=== PATIENT | male | born 1975 | race Caucasian/White ===

== ENCOUNTER 2020-03-04 04:25 | Inpatient (IN) | payer MEDICAID ==
[~2020-03-04] VITALS: Ht 170.2 cm; Wt 66.7 kg
[2020-03-04 04:30] VITALS: BP 128/104
--- NOTE | 2020-03-04 04:30 | NUR ---
PT B[facility]A [facility] [place]" FOR C/O LLQ AND RLQ ABD PAIN 04/24 X 2 DAYS. PT STATES, " PAIN IS SHARP." PT DENIES N/V/D. PT ABD IS SOFT, ROUND, AND TENDER TO TOUCH. BS PRESENT X 4 QUADRANTS. PT STATES LAST BM WAS 03/04/20 AND WAS "NORMAL." DENIES PAINFUL URINATION OR TESTICULAR PAIN. MEDHX: DENIES NKA
--- NOTE | 2020-03-04 04:30 | NUR ---
PT TAKEN TO BED 4 VIA GURNEY BY EMS. PT ABLE TO AMBULATE TO BED.
--- NOTE | 2020-03-04 04:35 | NUR ---
PT ADMITS TO DRUG USE X 3 HOURS AGO. " I DID SPEED, AND MARAROSITA." PT ON IT PROGRAM MANAGER.
[2020-03-04] MEDS ORDERED: KETOROLAC 30 MG/ML VIAL IVP ONE (04:40)
--- NOTE | 2020-03-04 04:50 | NUR ---
LABS DRAWN. IV PLACED IN R AC 20 G. IV SITE IS PATENT.
--- NOTE | 2020-03-04 04:54 | NUR ---
PT TAKEN TO CT VIA W/C.
--- NOTE | 2020-03-04 05:01 | NUR ---
PT RETURNED TO CT VIA W/C. PT AMBULATED TO BED 4 WITH STEADY GAIT.
--- NOTE | 2020-03-04 05:13 | NUR ---
UA COLLECTED VIA STRAIGHT CATH. UA SENT TO LAB.
--- NOTE | 2020-03-04 05:14 | NUR ---
ERMD AT BEDSIDE.
[2020-03-04] MEDS ORDERED: MORPHINE SULFATE 4 MG/ML SYR IVP ONE (05:15)
[2020-03-04] MEDS ORDERED: ONDANSETRON 4 MG/2 ML VIAL IVP ONE (05:15)
[2020-03-04] MEDS ORDERED: NACL 0.9% 1,000 ML IV ONE ×2 (05:20→06:00)
[2020-03-04 05:22] LABS: BASOPHILS # (AUTO) 0.1 K/uL (0.00-0.22); EOSINOPHILS # (AUTO) 0.5 K/uL (0-0.4); HEMOGLOBIN 16.7 g/dL (12.0-18.0); MEAN CORPUSCULAR HGB CONC 33 g/dL (33-37)
[2020-03-04 05:29] LABS: BASOPHILS % (AUTO) 0.6 % (0.0-2.0); EOSINOPHILS % (AUTO) 3.1 % (0.0-4.0); HEMATOCRIT 51.5 % (36-52); LYMPHOCYTES # (AUTO) 3.1 K/uL (2.0-11.5); LYMPHOCYTES % (AUTO) 18.9 % (20.5-51.1); MEAN CORPUSCULAR HEMOGLOBIN 29 pg (27-31); MEAN CORPUSCULAR VOLUME 88.1 fL (80-94); MONOCYTES # (AUTO) 0.7 K/uL (0.8-1.0); MONOCYTES % (AUTO) 4.2 % (1.7-9.3); NEUTROPHILS # (AUTO) 11.9 K/uL (1.8-7.7); NEUTROPHILS % (AUTO) 73.2 % (42.2-75.2); PLATELET COUNT (AUTO) 489 K/uL (140-450); RED BLOOD CELL COUNT(AUTO) 5.85 MIL/uL (4.20-6.10)
--- NOTE | 2020-03-04 05:29 | NUR ---
EKG PERFORMED AT BEDSIDE. SINUS TACHYCARDIA @ 102
--- NOTE | 2020-03-04 05:29 | NUR ---
EKG BEING PERFORMED AT BEDSIDE BY EMT
--- NOTE | 2020-03-04 05:29 | NUR ---
CALLED LAB TO OBTAIN BLOOD CULTURES, SAID THEY ARE ON THEIR WAY.
[2020-03-04 05:42] LABS: CARBON DIOXIDE 25.1 mmol/L (21-32); POTASSIUM 3.1 mmol/L (3.5-5.1)
[2020-03-04 05:43] LABS: ALBUMIN 3.3 g/dL (3.4-5.0); CREATININE 1.9 mg/dL (0.6-1.3); TOTAL BILIRUBIN 0.7 mg/dL (0.0-1.0)
[2020-03-04 05:46] LABS: WHITE BLOOD COUNT (AUTO) 16.3 K/uL (4.8-10.8)
[2020-03-04] MEDS ORDERED: PIPERACILLIN/TAZOBACTAM 3.375 GM in DEXTROSE 5% 50 ML IV ONE (05:50)
[2020-03-04 05:51] LABS: APPEARANCE,URINE CLOUDY (CLEAR); BILIRUBIN,URINE NEGATIVE (NEGATIVE); BLOOD, URINE 3+ (NEGATIVE); COLOR,URINE RED (YELLOW); LEUKOCYTE ESTERASE ,URINE NEGATIVE (NEGATIVE); NITRITE, URINE NEGATIVE (NEGATIVE); PH,URINE 5.5 (5.0-9.0); UGLUCOSE NEGATIVE (NEGATIVE)
[2020-03-04 05:52] LABS: RBC,URINE TOO NUMEROUS TO COUN /HPF (0-5); WBC,URINE 0-5 /HPF (0-5)
[2020-03-04] MEDS ORDERED: PIPERACILLIN/TAZOBACTAM 3.375 GM VIAL IV ONE (06:01)
[2020-03-04] MEDS ORDERED: KCL 20 MEQ/WATER INJ PREMIX 100 ML IV ONE (06:10)
[2020-03-04 06:22] LABS: BARBITURATE, URINE NEGATIVE ng/ml (NEG <=200); BENZODIAZEPINE, URINE NEGATIVE ng/mL (NEG <=200); CANNABINOID, URINE POSITIVE ng/mL (NEG <=50); COCAINE, URINE NEGATIVE ng/mL (NEG <=300); OPIATE, URINE NEGATIVE ng/mL (NEG <=2000); PHENCYCLIDINE SCREEN,URINE NEGATIVE ng/mL (NEG <=25)
[2020-03-04] MEDS ORDERED: ACETAMINOPHEN 325 MG TAB PO PRN (06:25)
[2020-03-04] MEDS ORDERED: DOCUSATE SODIUM 100 MG GELCAP PO PRN (06:25)
[2020-03-04] MEDS ORDERED: LORazepam 2 MG/ML VIAL IM/IVP PRN (06:25)
[2020-03-04] MEDS ORDERED: ZOLPIDEM 5 MG TAB PO PRN (06:25)
--- NOTE | 2020-03-04 06:30 | NUR ---
PTS PAIN HAS BEEN REDUCED FROM 04/24 TO 5. ALL PT NEEDS MET AT THIS TIME. EQUAL CHEST RISE AND FALL. FLIGHT NURSE AND PULSE OX IN PLACE. BED LOCKED AND IN LOWEST POSITION.
[2020-03-04 07:18] VITALS: BP 138/88
--- NOTE | 2020-03-04 07:18 | NUR ---
Patient will be admitted to care of [facility]. Admited to TELE. Will go to room 126 A. Belongings list completed. Report to MIRANDA ALY.
--- NOTE | 2020-03-04 07:18 | NUR ---
RECEIVED ENDORSEMENT FROM ER NURSE THIS 44 YEAR OLD MALE, ALERT, ORIENTEDX2, NILD DROWSY NOTED, BREATHING SPONTANEOUSLY AT ROOM AIR, [id number]%. BILATERAL CHEST CLEAR, ON AUSCULTATION, ABDOMEN WITH NORMAL BOWEL SOUNDS IN 4 QUADRANTS NOTED. WITH ONGOING POTASSIUM CHLORIDE 20MEQ/100ML 0.9NS AT 50ML/HR INFUSING WELL AT RT AC, G20 IV CANNULA NOTED. WITH IV CANNULA G20 AT LT AC NOTED ON SALINE LOCK.CAME IN ER DUE TO LOWER ABD PAIN AND DIAGNOSE A CASE OF PERFORATED BOWEL. SAFETY MEASURES IN PLACE. CONTINUE MONITOR.
[2020-03-04] MEDS: DEXT 5% / NACL 0.45% 1,000 ML IV SCH ×2 (07:30→16:25)
--- NOTE | 2020-03-04 08:05 | NUR ---
MRSA NARES SWAB TAKEN AND SENT TO LAB.
[2020-03-04 08:14] LABS: FREE T4 (FREE THYROXINE) 1.04 ng/dL (0.76-1.46); MAGNESIUM 1.9 mg/dL (1.8-2.4); PHOSPHORUS 3.1 mg/dL (2.5-4.9); THYROID STIMULATING HORMONE 2.34 uIU/mL (0.34-3.74)
--- NOTE | 2020-03-04 10:10 | NUR ---
FOR SURGERY,PROCEDURE EXPLAINED BY DR. MAXWELL, FULLY UNDERSTAND AND SIGNED THE CONSENT FOR SURGERY AND ANESTHESIA.
[2020-03-04] MEDS: MORPHINE SULFATE 2 MG/ML SYR IVP PRN ×2 (10:20→22:27)
--- NOTE | 2020-03-04 10:59 | NUR ---
LIVESTOCK NUTRITION TERRITORY MANAGER BY OR STAFF FOR SURGERY. PRE-OP CHECKLIST DONE.
[2020-03-04] MEDS ORDERED: FLUCONAZOLE 400 MG/NS PREMIX 200 ML IV SCH (11:00)
[2020-03-04] MEDS ORDERED: LIDOCAINE/EPI 1% 1:100000 20 ML VIAL INJ ONE ×2 (11:15→11:16)
[2020-03-04] MEDS ORDERED: BUPIVACAINE-MPF 0.25% 30 ML VIAL INJ ONE ×2 (11:16→11:17)
[2020-03-04] MEDS ORDERED: PROPOFOL 200 MG/20 ML VIAL IV ONE (11:32)
[2020-03-04] MEDS ORDERED: DEXAMETHASONE 4 MG/ML VIAL ONE (11:32)
[2020-03-04] MEDS ORDERED: fentaNYL citrate 0.05 MG/ML VIAL ONE (11:32)
[2020-03-04] MEDS ORDERED: ROCURONIUM 50 MG/5 ML VIAL IV ONE (11:32)
[2020-03-04] MEDS ORDERED: HYDROmorphone 1 MG/ML AMP ONE (11:32)
[2020-03-04] MEDS ORDERED: MIDAZOLAM 2 MG/2 ML VIAL ONE (11:32)
[2020-03-04] MEDS ORDERED: SEVOFLURANE 250 ML BTL INH ONE (11:32)
[2020-03-04] MEDS: PIPERACILLIN/TAZOBACTAM 3.375 GM in DEXTROSE 5% 50 ML IV SCH ×2 (12:00→18:41)
--- NOTE | 2020-03-04 12:21 | NUR ---
DISCHARGE PLANNING: THIS IS A 44 Y/O MALE PATIENT, WHO WAS BIBA DUE TO SEVER SHARP ABDOMINAL PAIN, NAUSEA. NO PERTINENT MEDICAL HISTORY. INITIAL DIAGNOSIS OF ABDOMINAL PAIN. INITIAL DIAGNOSIS OF WBC 16.3, H/H 16.7/51.5, NA/K 139/3.1, BUN/CREA 18/1.9, LACTIC ACID 2.5, LIPASE 621, ALB 3.3. UDS SHOWED AMPHETAMINES AND CANNABINOIDS. SURGERY CONSULTED FOR PERFORATED BOWEL. ON FLUCONAZOLE AND ZOSYN. DC PLAN PENDING ON PATIENT RESPONSE TO TREATMENT.
[2020-03-04] MEDS ORDERED: HYDROmorphone 1 MG/ML AMP IVP PRN (13:30)
--- NOTE | 2020-03-04 14:21 | NUR ---
BACK TO ROOM FROM OR, STATUS POST EXPLORE-LAPARATOMY, BIOPSY AND WITH BILATERAL KG DRAIN IN PLACE. AWAKE, ALERT, ORIENTEDX2 BUT STILL DROWSY NOTED. BREATHING SPONTANEOUSLY AT ROOM AIR, [id number]%, NOT IN LABORED NOTED. POST OP SITE DRY AND INTACT DRESSING, NO BLEEDING NOTED. IV FLUID D5 0.45% NS AT 100ML/HR RESUMED INFUSING WELL AT RT CEPHALIC VEIN NOTED, WITH IV CANNULA G20 AT RT AC ON SALINE SHEREE NOTED. , MAINTAINED UNTIL FURTHER ORDER, WITH NGT LAVAGE AT RIGHT NARES NOTED.SAFETY MEASURES IN PLACE. CONTINUE MONITOR
--- NOTE | 2020-03-04 16:05 | NUR ---
ALERT AND AWAKE BUT DROWSY, NO COMPLAINED OF PAIN, CONTINUE MONITOR.
--- NOTE | 2020-03-04 18:39 | NUR ---
DUE MEDICATION GIVEN, FULLY AWAKE AND ALERT, DENIES ANY PAIN, RT KG DRAINED AT 50ML, LT KG DRAINED AT 25ML NOTED. SAFETY MEASURES IN PLACE.
--- NOTE | 2020-03-04 19:14 | NUR ---
ENDORSED TO CLERICAL OFFICE FOR CONTINUITY OF CARE IN STABLE CONDITION, NOT IN DISTRESS
--- NOTE | 2020-03-04 19:17 | NUR ---
RECEIVED CARE FROM AM NURSE. PATIENT IS SLEEPING IN BED, IN STABLE CONDITION. NO COMPLAINT OF PAIN OR SIGNS OF DISTRESS. PATIENT IS S/P LAPAROTOMY WITH PROCREATED BOWEL REPAIR. DRESSINGS ARE DRY AND INTACT. PATIENT IS NO ROOM AIR. PATIENT IS ALERT BUT REFUSING TO OPEN EYES. SKIN AND WARM AND DRY. BILATERAL DRAINAGE TUBES NOTED. SAFETY PRECAUTIONS IN PLACE. CALL LIGHT WITHIN REACH. WILL CONTINUE TO MONITOR.
[2020-03-04 20:00] VITALS: BP 128/86
--- NOTE | 2020-03-04 21:23 | NUR ---
PER HANS MONTOYA MD NOTES, PT IS A FULL CODE. FULL CODE STATUS INPUTTED . PATIENT IS SLEEPING. NO SIGNS OF DISTRESS NOTED.
--- NOTE | 2020-03-04 22:20 | NUR ---
PATIENT REPORTED HAVING PAIN 8/10 IN ABD. MEDICATED ORDERED.
[2020-03-05] VITALS: BP 133/80
[2020-03-05] MEDS: PIPERACILLIN/TAZOBACTAM 3.375 GM in DEXTROSE 5% 50 ML IV SCH ×4 (00:26→17:36)
--- NOTE | 2020-03-05 00:56 | NUR ---
PATIENT LYING IN BED, COMPLAINING OF PAIN. PAIN MEDS ORDERED IS NOT DUE. WILL MEDICATE ORDERED WHEN PAIN MED IS DUE. PATIENT CONTINUES TO BE IN STABLE CONDITION. WILL CONTINUE TO MONITOR.
[2020-03-05] MEDS: DEXT 5% / NACL 0.45% 1,000 ML IV SCH ×3 (02:25→22:33)
--- NOTE | 2020-03-05 03:12 | NUR ---
PATIENT IS SLEEPING. VISIBLE CHEST RISE NOTED. WILL CONTINUE TO MONITOR.
[2020-03-05 04:00] VITALS: BP 128/86
[2020-03-05] MEDS: MORPHINE SULFATE 2 MG/ML SYR IVP PRN ×4 (04:09→20:31)
[2020-03-05 05:28] LABS: BASOPHILS % (AUTO) 0.2 % (0.0-2.0); EOSINOPHILS % (AUTO) 0.1 % (0.0-4.0); HEMATOCRIT 41.8 % (36-52); HEMOGLOBIN 13.6 g/dL (12.0-18.0); LYMPHOCYTES % (AUTO) 5.2 % (20.5-51.1); MEAN CORPUSCULAR HEMOGLOBIN 28 pg (27-31); MEAN CORPUSCULAR HGB CONC 33 g/dL (33-37); MEAN CORPUSCULAR VOLUME 86.8 fL (80-94); MONOCYTES % (AUTO) 5.5 % (1.7-9.3); NEUTROPHILS # (AUTO) 16.7 K/uL (1.8-7.7); PLATELET COUNT (AUTO) 327 K/uL (140-450); RED BLOOD CELL COUNT(AUTO) 4.82 MIL/uL (4.20-6.10); RED CELL DISTRIBUTION WIDTH 13.9 % (11.6-13.7); WHITE BLOOD COUNT (AUTO) 18.8 K/uL (4.8-10.8)
--- NOTE | 2020-03-05 07:30 | NUR ---
RECEIVED PATIENT FROM CEMENT STORAGE WORKER NURSE FOR CONTINUITY OF CARE. PATIENT IS SLEEPING IN BED, NO COMPLAINT OF PAIN OR SIGNS OF DISTRESS. PATIENT IS S/P LAPAROTOMY WITH PROCREATED BOWEL REPAIR. RESPIRATIONS EVEN AND UNLABORED, ON ROOM AIR. DRESSINGS ARE DRY AND INTACT. SKIN AND WARM AND DRY. IV SITE ON RIGHT FOREARM 20G WITH IVF RUNNING PER ORDERS. BILATERAL KG DRAINAGE TUBES NOTED. SAFETY PRECAUTIONS IN PLACE. CALL LIGHT WITHIN REACH. WILL CONTINUE TO MONITOR.
--- NOTE | 2020-03-05 07:38 | NUR ---
ENDORSED TO AM NURSE. PATIENT IS IN STABLE CONDITION.
[2020-03-05 08:00] VITALS: BP 159/91
--- NOTE | 2020-03-05 09:02 | NUR ---
PATIENT HAS BEEN SCREENED AND CATEGORIZED MODERATE NUTRITION RISK. PATIENT WILL BE SEEN WITHIN 3-5 DAYS OF ADMISSION. 03/06/20 03/08/[address]
[2020-03-05] MEDS: FLUCONAZOLE 200 MG/NS PREMIX 100 ML IV SCH (09:22)
--- NOTE | 2020-03-05 09:23 | NUR ---
MORNING MEDICATIONS GIVEN. MORPHINE IVP GIVEN FOR INCISIONAL PAIN OF 10/10. NO SIGNS OF DISTRESS NOTED. V/S TAKEN BP 159/91, HR 81. WILL CONTINUE TO MONITOR.
--- NOTE | 2020-03-05 10:35 | NUR ---
DR. SMITH BY THE BEDSIDE. EXPLAINED TO PATIENT OF CONTINUED NPO STATUS AND PATIENT VERBALIZES UNDERSTANDING. REPORTED DRAINAGE AMOUNT. NO FURTHER ORDERS GIVEN. WILL CONTINUE TO MONITOR.
[2020-03-05 12:00] VITALS: BP 151/83
--- NOTE | 2020-03-05 13:08 | NUR ---
MORPHINE IVP GIVEN FOR INCISIONAL PAIN OF 10/10. V/S TAKEN BP 151/83, HR 91. NO SIGNS OF DISTRESS NOTED. WILL CONTINUE TO MONITOR.
[2020-03-05 14:37] LABS: ANION GAP 16.4 (8-16); CARBON DIOXIDE 20.9 mmol/L (21-32); CREATININE 1.4 mg/dL (0.6-1.3); POTASSIUM 4.3 mmol/L (3.5-5.1)
[2020-03-05 16:00] VITALS: BP 133/77
--- NOTE | 2020-03-05 16:20 | NUR ---
V/S TAKEN. PATIENT IS FEBRILE WITH 100.3, COOLING MEASURES IN PLACE. WILL CONTINUE TO MONITOR.
--- NOTE | 2020-03-05 17:40 | NUR ---
REASSESSED V/S AND TEMP DECREASED TO 99.4F. AFTERNOON MEDICATIONS GIVEN. NO SIGNS OF DISTRESS NOTED. WILL CONTINUE TO MONITOR.
--- NOTE | 2020-03-05 19:30 | NUR ---
ENDORSED TO LANGUAGE THERAPIST NURSE FOR CONTINUITY CARE.
--- NOTE | 2020-03-05 19:30 | NUR ---
RECEIVED PT AAOX4 , NI D- O2 SAT WNL , NO S/SX OF ACUTE DISTRESS C/O PAIN - WILL MEDICATE . IV SITES INTACT AND PATENT . NPO RE EMPHASIZED . W/ 2 KG DRAIN AT SURGICAL SITE - DRESSING DRY AND INTACT - SOFT ABD. PLAN OF CARE DISCUSSED AND VERBALIZE UNDERSTANDING , SAFETY MEASURES IN PLACE . ON TELE MONITOR , BP WNL . WILL CONT. TO MONITOR .
[2020-03-05 20:00] VITALS: BP 127/62
[2020-03-05] MEDS: ONDANSETRON 4 MG/2 ML VIAL IVP PRN (20:31)
[2020-03-05] MEDS ORDERED: PANTOPRAZOLE 40 MG INJ VIAL IVP SCH (21:00)
[2020-03-05] MEDS: AMOXICILLIN 500 MG CAP PO SCH ×2 (21:00→22:00)
[2020-03-05] MEDS: CLARITHROMYCIN 500 MG TAB PO SCH (21:00)
[2020-03-06] VITALS: BP 125/65
--- NOTE | 2020-03-06 | NUR ---
MADE ROUNDS , NO S/SX OF ACUTE DISTRESS NOTED AT THIS TIME . WILL CONT. TO MONITOR.
[2020-03-06] MEDS: PIPERACILLIN/TAZOBACTAM 3.375 GM in DEXTROSE 5% 50 ML IV SCH ×4 (00:36→18:09)
[2020-03-06] MEDS: MORPHINE SULFATE 2 MG/ML SYR IVP PRN ×2 (01:18→05:56)
[2020-03-06 04:00] VITALS: BP 140/80
--- NOTE | 2020-03-06 04:00 | NUR ---
MADE ROUNDS , NO S/SX OF ACUTE DISTRESS NOTED AT THIS TIME . WILL CONT. TO MONITOR.
[2020-03-06] MEDS: ONDANSETRON 4 MG/2 ML VIAL IVP PRN (05:56)
--- NOTE | 2020-03-06 06:00 | NUR ---
C/O PAIN - JUST MEDICATED . WILL CONT. TO ASSESS .
[2020-03-06 06:43] LABS: BASOPHILS # (AUTO) 0.1 K/uL (0.00-0.22); BASOPHILS % (AUTO) 0.4 % (0.0-2.0); EOSINOPHILS # (AUTO) 1.1 K/uL (0-0.4); EOSINOPHILS % (AUTO) 7.1 % (0.0-4.0); HEMATOCRIT 39.9 % (36-52); HEMOGLOBIN 13.1 g/dL (12.0-18.0); LYMPHOCYTES # (AUTO) 1.1 K/uL (2.0-11.5); LYMPHOCYTES % (AUTO) 7.2 % (20.5-51.1); MEAN CORPUSCULAR HEMOGLOBIN 28 pg (27-31); MEAN CORPUSCULAR HGB CONC 33 g/dL (33-37); MEAN CORPUSCULAR VOLUME 86.5 fL (80-94); MONOCYTES # (AUTO) 0.8 K/uL (0.8-1.0); NEUTROPHILS % (AUTO) 80.3 % (42.2-75.2); PLATELET COUNT (AUTO) 303 K/uL (140-450); RED BLOOD CELL COUNT(AUTO) 4.61 MIL/uL (4.20-6.10); RED CELL DISTRIBUTION WIDTH 14.2 % (11.6-13.7); WHITE BLOOD COUNT (AUTO) 14.9 K/uL (4.8-10.8)
[2020-03-06 07:00] LABS: ANION GAP 10.9 (8-16); CARBON DIOXIDE 25.1 mmol/L (21-32); CREATININE 1.4 mg/dL (0.6-1.3)
[2020-03-06 07:03] LABS: MAGNESIUM 1.8 mg/dL (1.8-2.4); PHOSPHORUS 2.4 mg/dL (2.5-4.9)
--- NOTE | 2020-03-06 07:25 | NUR ---
RECEIVED REPORT FROM HANDYMAN NURSE FOR CONTINUITY OF CARE. PATIENT IS SLEEPING WITH LEFT LATERAL POSITION WITH VISIBLE CHEST RISE AND DOWN. BILATERAL KG DRAIN TUBE NOTED. SKIN WARM AND DRY. IV INFUSION D5 1/2 NS 100 CC/HR. NO ACUTE DISTRESS NOTED. SAFETY MEASURES IN PLACE. WILL CONTINUE TO MONITOR.
--- NOTE | 2020-03-06 07:25 | NUR ---
ENDORSED TO AM SHIFT - PT - STABLE .
[2020-03-06 08:00] VITALS: BP 148/80
[2020-03-06] MEDS: DEXT 5% / NACL 0.45% 1,000 ML IV SCH ×2 (08:25→18:42)
[2020-03-06] MEDS: FLUCONAZOLE 200 MG/NS PREMIX 100 ML IV SCH (09:30)
[2020-03-06] MEDS: PANTOPRAZOLE 40 MG INJ VIAL IVP SCH (09:31)
[2020-03-06] MEDS: CLARITHROMYCIN 500 MG TAB PO SCH ×2 (09:32→22:00)
[2020-03-06] MEDS: AMOXICILLIN 500 MG CAP PO SCH (09:32)
--- NOTE | 2020-03-06 09:32 | NUR ---
SCHEDULED MORNING MEDICATION GIVEN, EDUCATION PROVIDED. PATIENT TOLERATED WELL. CONTINUE WITH NPO EXCEPT MEDS. SAFETY MEASURES IN PLACE, CALL LIGHT WITHIN REACH. WILL CONTINUE TO MONITOR.
--- NOTE | 2020-03-06 11:10 | NUR ---
PATIENT RESTING IN BED, WITH NO ACUTE DISTRESS NOTED. AROUSABLE BY VOICE. IV INFUSING ORDERED. CALL LIGHT WITHIN REACH. WILL CONTINUE TO MONITOR.
[2020-03-06 12:00] VITALS: BP 140/89
--- NOTE | 2020-03-06 12:32 | NUR ---
IV ZOSYN CONNECTED AND INFUSE ORDERED, PATIENT TOLERATED WELL. WILL CONTINUE TO MONITOR.
[2020-03-06 16:00] VITALS: BP 147/86
[2020-03-06] MEDS: HYDROcodone/APAP 5/325 MG 1 TAB TAB PO PRN (18:09)
--- NOTE | 2020-03-06 18:09 | NUR ---
NORCO WAS GIVEN FOR ABDOMINAL PAIN 12/23. PATIENT HAS NO BM TODAY. EMPTY KG DRAIN BILATERAL SIDE. 20CC COLLECTED AT RIGHT SIDE. 40 CC COLLECTED AT LEFT SIDE. WILL CONTINUE TO MONITOR.
--- NOTE | 2020-03-06 19:30 | NUR ---
ENDORSED PATIENT TO CFD ENGINEER NURSE FOR CONTINUITY OF CARE.
--- NOTE | 2020-03-06 19:30 | NUR ---
RECEIVED PT AAOX4 , HE SAID BEARBALE PAIN AT THIS TIME , SURGICAL DRESSING DRY AND INTACT W/ 2 KG DRAINS - EMPTY , IV SITE INTACT AND PATENT . ON TELE MONITOR . SAFETY MEASURES IN PLACE - CALL LIGHT WITHIN REACH. PER AM NURSE SHE SAID SHE JUST GIVEN NARCO FOR PAIN ORALLY - I ASKED HER WHY SHE GAVE ORAL MEDS , SINCE I ENDORSED TO HER THE PT IS NPO - SHE SAID PT. IS NPO - SHE SAID PT IS NPO EXCEPT MEDS - WILL CLARIFY TO DR. GEORGE . Addendum: 03/07/20 at 0848 by Juliana Townsend RN I TEXTED TO DR. GEORGE -IF PT . IS TOTALLY NPO OR NPO EXCEPTS MEDS - DR. GEORGE TEXTED BACK NPO EXCEPT MEDS . - [place]
[2020-03-06 20:00] VITALS: BP 140/77
--- NOTE | 2020-03-06 20:00 | NUR ---
PT. IS TACHYPNEIC - RR 38 CPM - BUT THE THE O2 SAT IS 96 % - REFER TO RT FOR FURTHER ASSESSMENT . WILL CONT. TO MONITOR . Addendum: 03/06/20 at 2012 by Juliana Townsend RN THE ABOVE NURSE'S NOTE IS AN ERROR ENTRY - [id number]
--- NOTE | 2020-03-06 20:10 | NUR ---
SEEN /EXAMINE BY RT - SUGGESTING SEDATION . WILL CONT. TO MONITOR. Addendum: 03/06/20 at 2012 by Juliana Townsend RN TH ABOVE NURSE'S NOTE IS AN ERROR ENTRY - [id number]
--- NOTE | 2020-03-06 22:00 | NUR ---
MADE ROUNDS , NO S/SX OF ACUTE DISTRESS NOTED AT THIS TIME . WILL CONT. TO MONITOR.
[2020-03-07] VITALS: BP 142/68
--- NOTE | 2020-03-07 | NUR ---
MADE ROUNDS , NO S/SX OF ACUTE DISTRESS NOTED AT THIS TIME.
[2020-03-07] MEDS: PIPERACILLIN/TAZOBACTAM 3.375 GM in DEXTROSE 5% 50 ML IV SCH ×5 (00:37→23:34)
[2020-03-07 04:00] VITALS: BP 140/77
--- NOTE | 2020-03-07 04:00 | NUR ---
MADE ROUNDS , NO S/SX OF ACUTE DISTRESS NOT5ED AT THIS TIME .
--- NOTE | 2020-03-07 05:55 | NUR ---
PT CALL TO MY CHARGE NURSE - PER PT HE IS IN PAIN - ASKING MED. FOR PAIN - WILL MEDICATE .
[2020-03-07] MEDS: HYDROcodone/APAP 5/325 MG 1 TAB TAB PO PRN (05:56)
--- NOTE | 2020-03-07 06:35 | NUR ---
DR. Jorge SMITH ROUNDS , HE FOUND OUT [facility] AT THE PT'S BEDSIDE - DR. Jorge SMITH ASKING ME WHY THERE IS W[facility]ER AT BEDSIDE SINCE PT IS NPO ? I TOLD HIM THE PRIMARY DOCTOR ORDERED NPO EXCEPT MEDS .- WILL INFORM THE CHARGE NURSE ABOUT THIS MATTER .
--- NOTE | 2020-03-07 07:00 | NUR ---
PLACE PT ON TOTALLY NPO - WILL ENDORSE .
[2020-03-07] MEDS: DEXT 5% / NACL 0.45% 1,000 ML IV SCH ×4 (07:07→23:51)
--- NOTE | 2020-03-07 07:30 | NUR ---
ENDORSED TO AM SHIFT - PT - STABLE . BEARABLE PAIN HE SAID .
--- NOTE | 2020-03-07 07:30 | NUR ---
RECEIVED REPORT FROM KNUCKLE STRAP SEWER NURSE FOR CONTINUITY OF CARE. PATIENT RESTING IN BED, AROUSABLE BY VOICE, IV INFUSING 100CC/HR WITH D5 1/2 NS. NPO STATUS NOTED. KG DRAIN NOTED AT BILATERAL ABDOMINAL SITE. SKIN WARM AND DRY. COMPRESSION AT BILATERAL LOWER LEG. SAFETY MEASURES IN PLACE. WILL CONTINUE TO MONITOR.
[2020-03-07] MEDS: AMOXICILLIN 500 MG CAP PO SCH (08:56)
[2020-03-07] MEDS: FLUCONAZOLE 200 MG/NS PREMIX 100 ML IV SCH (08:56)
[2020-03-07] MEDS: CLARITHROMYCIN 500 MG TAB PO SCH (08:56)
[2020-03-07] MEDS: PANTOPRAZOLE 40 MG INJ VIAL IVP SCH (08:56)
--- NOTE | 2020-03-07 09:05 | NUR ---
SCHEDULED MORNING MEDICATION ADMINISTERED, EDUCATION PROVIDED, PATIENT TOLERATED WELL, ORAL MEDS HOLD DUE TO KEEP NPO STATUS. SAFETY MEASURES IN PLACE. NO ACUTE DISTRESS NOTED. WILL CONTINUE TO MONITOR.
--- NOTE | 2020-03-07 11:02 | NUR ---
CHECKED PATIENT, RESTING IN BED, NO ACUTE DISTRESS NOTED. WILL CONTINUE TO MONITOR.
[2020-03-07 12:00] VITALS: BP 157/92
--- NOTE | 2020-03-07 12:22 | NUR ---
IV ZOSYN ADMINISTERED. PATIENT RESTING IN BED, AROUSALE BY VOICE STIMULI. PATIENT DENIES ANY PAIN. SAFETY MEASURES IN PLACE, CALL LIGHT WITHIN REACH, WILL CONTINUE TO MONITOR.
[2020-03-07 14:58] LABS: BASOPHILS % (AUTO) 0.4 % (0.0-2.0); EOSINOPHILS % (AUTO) 9.1 % (0.0-4.0); HEMOGLOBIN 13.8 g/dL (12.0-18.0); LYMPHOCYTES # (AUTO) 1.1 K/uL (2.0-11.5); MEAN CORPUSCULAR HEMOGLOBIN 28 pg (27-31); MEAN CORPUSCULAR HGB CONC 33 g/dL (33-37); MEAN CORPUSCULAR VOLUME 86.1 fL (80-94); MONOCYTES # (AUTO) 0.6 K/uL (0.8-1.0); NEUTROPHILS # (AUTO) 8.3 K/uL (1.8-7.7); NEUTROPHILS % (AUTO) 75.5 % (42.2-75.2); PLATELET COUNT (AUTO) 330 K/uL (140-450); RED BLOOD CELL COUNT(AUTO) 4.88 MIL/uL (4.20-6.10); RED CELL DISTRIBUTION WIDTH 13.9 % (11.6-13.7)
[2020-03-07 15:19] LABS: ANION GAP 13.2 (8-16); CARBON DIOXIDE 25.5 mmol/L (21-32); CREATININE 1.2 mg/dL (0.6-1.3); POTASSIUM 3.7 mmol/L (3.5-5.1)
[2020-03-07 16:00] VITALS: BP 159/82
[2020-03-07] MEDS: MORPHINE SULFATE 2 MG/ML SYR IVP PRN ×2 (17:11→20:42)
--- NOTE | 2020-03-07 17:11 | NUR ---
MORPHINE ADMINISTERED VIA IVP FOR ABDOMINAL PAIN, 01/22. WILL REASSESS AND CONTINUE TO MONITOR.
--- NOTE | 2020-03-07 19:30 | NUR ---
ENDORSED PATIENT TO CIVIL ESTIMATOR NURSE FOR CONTINUITY OF CARE.
--- NOTE | 2020-03-07 19:31 | NUR ---
RECEIVED BEDSIDE ENDORSEMENT FROM AM SHIFT RN. RESPIRATION EVEN AND UNLABORED, NO SOB, ABLE TO MAKE NEEDS KNOWN, LEFT HAND 24 G, INTACT. ON NPO. WITH 2 KG JEANNIE, 1 ON THE LEFT AND 1 ON THE RIGHT SIDE OF THE ABDOMEN, SURGICAL INCISION AT THE MID ABDOMEN AREA, COVERED W/DRY DRESSING AND INTACT. FALL RISK PROTOCOL IN PLACE. SAFETY MEASURES IN PLACE. PLAN OF CARE DISCUSSED, CALL LIGHT WITHIN REACH.
--- NOTE | 2020-03-07 23:34 | NUR ---
zosyn ivpb given as ordered, no a/r noted.
[2020-03-08] VITALS: BP 145/83
--- NOTE | 2020-03-08 02:31 | NUR ---
PATIENT IS ASLEEP, RESPIRATION EVEN AND UNLABORED, CALL LIGHT WITHIN REACH.
[2020-03-08] MEDS: MORPHINE SULFATE 2 MG/ML SYR IVP PRN ×4 (03:30→20:59)
[2020-03-08] MEDS: PIPERACILLIN/TAZOBACTAM 3.375 GM in DEXTROSE 5% 50 ML IV SCH ×3 (05:15→18:27)
--- NOTE | 2020-03-08 05:16 | NUR ---
ZOSYN IV GIVEN ORDERED, NO A/R NOTED.
[2020-03-08] MEDS: DEXT 5% / NACL 0.45% 1,000 ML IV SCH ×2 (05:26→20:25)
--- NOTE | 2020-03-08 05:52 | NUR ---
LEFT SIDE KG DRAIN 80ML AND RIGHT SIDE KG DRAIN 60ML, WITH TOTAL OF 140ML.
[2020-03-08 07:00] LABS: BASOPHILS # (AUTO) 0.1 K/uL (0.00-0.22); BASOPHILS % (AUTO) 0.6 % (0.0-2.0); EOSINOPHILS # (AUTO) 1.1 K/uL (0-0.4); EOSINOPHILS % (AUTO) 11.2 % (0.0-4.0); HEMATOCRIT 38.6 % (36-52); HEMOGLOBIN 13.2 g/dL (12.0-18.0); LYMPHOCYTES # (AUTO) 1.3 K/uL (2.0-11.5); MEAN CORPUSCULAR HEMOGLOBIN 29 pg (27-31); MEAN CORPUSCULAR HGB CONC 34 g/dL (33-37); MEAN CORPUSCULAR VOLUME 84.7 fL (80-94); MONOCYTES # (AUTO) 0.9 K/uL (0.8-1.0); MONOCYTES % (AUTO) 8.5 % (1.7-9.3); NEUTROPHILS # (AUTO) 6.9 K/uL (1.8-7.7); NEUTROPHILS % (AUTO) 66.7 % (42.2-75.2); PLATELET COUNT (AUTO) 344 K/uL (140-450); RED BLOOD CELL COUNT(AUTO) 4.56 MIL/uL (4.20-6.10); RED CELL DISTRIBUTION WIDTH 13.5 % (11.6-13.7); WHITE BLOOD COUNT (AUTO) 10.3 K/uL (4.8-10.8)
[2020-03-08 07:07] LABS: ANION GAP 10.6 (8-16); CREATININE 1.2 mg/dL (0.6-1.3); POTASSIUM 3.6 mmol/L (3.5-5.1)
--- NOTE | 2020-03-08 07:20 | NUR ---
PATIENT IS IN STABLE CONDITION. ENDORSED TO AM SHIFT RN FOR CONTINUITY OF CARE.
--- NOTE | 2020-03-08 07:21 | NUR ---
RECEIVED ENDORSEMENT INSURANCE FOLLOW UP SPECIALIST NURSE, AWAKE,ALERT, BREATHING SPONTANEOUSLY AT ROOM AIR, NOT IN DISTRESS NOTED, WITH ONGOING IV FLUID D5 0.45% NS AT 100ML/H INFUSING WELL AT LEFT HAND, G 24, PATENT. WITH DRY AND INTACT SURGICAL DRESSING AT ABDOMEN WITH RIGHT AND LEFT EUFEMIA CAMILO DRAINAGE NOTED. SAFETY MEASURES IN PLACE.
[2020-03-08 08:00] VITALS: BP 145/79
--- NOTE | 2020-03-08 09:55 | NUR ---
VOIDED FREELY IN URINAL, STRAW YELLOW 650ML URINE NOTED. DUE MEDICATION GIVEN
[2020-03-08] MEDS: FLUCONAZOLE 200 MG/NS PREMIX 100 ML IV SCH (09:59)
[2020-03-08] MEDS: PANTOPRAZOLE 40 MG INJ VIAL IVP SCH (09:59)
--- NOTE | 2020-03-08 10:11 | NUR ---
DR. SMITH CALLED TO CANCEL THE THE UPPER GI SERIES AND MADE NEW ORDER FOR CT SCAN ABDOMEN/PELVIS WITH ORAL CONTRAST NOTED.
--- NOTE | 2020-03-08 11:47 | NUR ---
SENT TO CT SCAN DEPARTMENT IN STABLE CONDITION PER BED FOR CT SCAN ABDOMEN AND PELVIS WITH ORAL CONTRAST, NO NEED FOR CONSENT PER THE HIDE STRETCHER HAND.
--- NOTE | 2020-03-08 13:11 | NUR ---
COMPLAINED OF ABDOMINAL SURGICAL SITE PAIN, MORPHINE 2MG IVP ORDERED PRN GIVEN, KEEP COMFORTABLE TO BED
--- NOTE | 2020-03-08 14:50 | NUR ---
DRESSING CHANGED AT SURGICAL SITE ORDERED. MEDIAN ABDOMEN WITH INCISION, SURGICAL AUBREY AND NO DISCHARGES NOTED. CLEANSE WITH 0.95 NS ASEPTICALLY AND COVERED BY ADHESIVE WOUND DRESSING.
--- NOTE | 2020-03-08 15:10 | NUR ---
03/08/20 RD INITIAL ASSESSMENT COMPLETED PLEASE REFER TO NUTRITION ASSESSMENT UNDER CARE ACTIVITY FOR ESTIMATED NUTRITIONAL NEEDS. 1. CONTINUE NPO 2. ADVANCE TO CLEAR LIQUIDS WHEN MEDICALLY STABLE 3. CONSIDER PARENTERAL NUTRITION IF PT WILL CONTINUE TO BE NPO FOR A FURTHER EXTENDED TIME 4. RD TO FOLLOW-UP 2-3 DAYS, HIGH RISK AIDEN [facility]Z RD
[2020-03-08 16:00] VITALS: BP 143/87
--- NOTE | 2020-03-08 17:10 | NUR ---
AWAKE, NO COMPLAINED OF PAIN NOTED.
--- NOTE | 2020-03-08 18:11 | NUR ---
DUE MEDICATION GIVEN, EUFEMIA CAMILO DRAINED AND RECORDED.
--- NOTE | 2020-03-08 19:21 | NUR ---
ENDORSED TO BLOOD BANK LABORATORY TECHNOLOGIST NURSE IN STABLE CONDITION FOR CONTINUITY OF CARE.
--- NOTE | 2020-03-08 19:22 | NUR ---
RECEIVED BEDSIDE SHIFT REPORT FROM DAY SHIFT NURSE. PT IN BED RESTING. AAOX4, ABLE TO MAKE NEEDS KNOWN. RESPIRATION ARE EVEN AND UNLABORED TO ROOM AIR. ABDOMEN IS SOFT. SKIN IS WARM AND DRY. PT HAS ABDOMINAL INCISION SITE, DRESSINGS DRY AND INTACT. LEFT AND RIGHT KG DRAIN PRESENT WELL, DRAINING WELL. IV ACCESS ON LEFT HAND G24 PATENT AND INTACT, IVF INFUSING WELL. PT KEPT ON NPO. PT DENIES ANY PAIN OR DISCOMFORT AT THIS TIME. SAFETY MEASURES IN PLACE. CALL LIGHT WITHIN REACH. WILL CONTINUE TO MONITOR.
--- NOTE | 2020-03-08 20:59 | NUR ---
PT COMPLAINING OF ABDOMINAL PAIN 02/22. PRN PAIN MEDICATION GIVEN ORDERED. WILL CONTINUE TO MONITOR.
--- NOTE | 2020-03-08 22:37 | NUR ---
25ML FLUID COLLECTED FROM BOTH LEFT AND RIGHT KG DRAIN COMBINED. WILL CONTINUE TO MONITOR.
[2020-03-09] VITALS: BP 160/89
--- NOTE | 2020-03-09 00:22 | NUR ---
VITAL SIGNS STABLE. PT NOT IN DISTRESS. NO S/SX OF PAIN NOTED. SAFETY MEASURES IN PLACE. CALL LIGHT WITHIN REACH. WILL CONTINUE TO MONITOR.
--- NOTE | 2020-03-09 02:38 | NUR ---
PT SLEEPING. RESPIRATIONS EVEN AND UNLABORED. PT NOT IN DISTRESS. PT KEPT SAFE AND COMFORTABLE. SAFETY MEASURES IN PLACE. CALL LIGHT WITHIN REACH. WILL CONTINUE TO MONITOR.
[2020-03-09] MEDS: MORPHINE SULFATE 2 MG/ML SYR IVP PRN (04:00)
--- NOTE | 2020-03-09 04:02 | NUR ---
PT COMPLAINING OF PAIN 02/22. PRN PAIN MEDICATION GIVEN ORDERED. WILL CONTINUE TO MONITOR.
[2020-03-09] MEDS: DEXT 5% / NACL 0.45% 1,000 ML IV SCH ×2 (04:08→18:05)
--- NOTE | 2020-03-09 07:16 | NUR ---
RECEIVED ENDORSEMENT FROM SOLAR SALES REPRESENTATIVE AND ASSESSOR, AWAKE,ALERT,ORIENTEDX4, BREATHING SPONTANEOUSLY AT ROOM AIR, NOT IN DISTRESS NOTED. WITH ONGOING IV FLUID D5 0.45% NS AT 100ML/H INFUSING WELL AT LEFT HAND G24, PATENT NOTED. WITH DRY AND INTACT DRESSING AT ABDOMEN SURGICAL SITE WITH BILATERAL KG DRAIN NOTED. SEQUENTIAL COMPRESSION DEVICE IN PLACE. MAINTAINED NPO UNTIL FURTHER ORDER. SAFETY MEASURES IN PLACE AND CONTINUE MONITOR.
[2020-03-09 08:00] VITALS: BP 155/91
[2020-03-09] MEDS: FLUCONAZOLE 200 MG/NS PREMIX 100 ML IV SCH (09:04)
[2020-03-09] MEDS: PANTOPRAZOLE 40 MG INJ VIAL IVP SCH (09:04)
[2020-03-09] MEDS: ENOXAPARIN 40 MG/0.4 ML SYR SUBQ SCH (09:05)
--- NOTE | 2020-03-09 09:15 | NUR ---
FULLY AWAKE, NO COMPLAINED OF PAIN. DUE MEDICATION GIVEN.
[2020-03-09 09:21] LABS: BASOPHILS # (AUTO) 0.1 K/uL (0.00-0.22); BASOPHILS % (AUTO) 0.7 % (0.0-2.0); EOSINOPHILS # (AUTO) 1.2 K/uL (0-0.4); EOSINOPHILS % (AUTO) 11.9 % (0.0-4.0); HEMATOCRIT 38.8 % (36-52); LYMPHOCYTES # (AUTO) 1.3 K/uL (2.0-11.5); LYMPHOCYTES % (AUTO) 13.2 % (20.5-51.1); MEAN CORPUSCULAR HEMOGLOBIN 29 pg (27-31); MEAN CORPUSCULAR HGB CONC 34 g/dL (33-37); MEAN CORPUSCULAR VOLUME 85.3 fL (80-94); MONOCYTES # (AUTO) 1.1 K/uL (0.8-1.0); NEUTROPHILS # (AUTO) 6.2 K/uL (1.8-7.7); NEUTROPHILS % (AUTO) 63.2 % (42.2-75.2); PLATELET COUNT (AUTO) 329 K/uL (140-450); RED BLOOD CELL COUNT(AUTO) 4.55 MIL/uL (4.20-6.10); RED CELL DISTRIBUTION WIDTH 13.5 % (11.6-13.7); WHITE BLOOD COUNT (AUTO) 9.7 K/uL (4.8-10.8)
--- NOTE | 2020-03-09 09:30 | NUR ---
DR. FAGAN ASKED IN THE UNIT IF THE PATIENT STILL ON NPO STATUS, ACCORDING TO HIM KEEP NPO UNTIL DR. SMITH FURTHER ORDER.
[2020-03-09 09:47] LABS: MAGNESIUM 1.6 mg/dL (1.8-2.4); PHOSPHORUS 2.6 mg/dL (2.5-4.9)
[2020-03-09 10:03] LABS: CARBON DIOXIDE 25.5 mmol/L (21-32); POTASSIUM 3.5 mmol/L (3.5-5.1)
--- NOTE | 2020-03-09 12:35 | NUR ---
BERTA BAE CAME. LEFT KG DRAIN REMOVED AND FULL LIQUID DIET STARTED ORDERED
--- NOTE | 2020-03-09 14:32 | NUR ---
FULL LIQUID DIET SERVED, ABLE TO FEED HIMSELF. ENCOURAGED TO AMBULATE AROUND THE ROOM AND TO THE TOILET.
--- NOTE | 2020-03-09 15:05 | NUR ---
HEEL LIFT GOUGER TOMY CALLED PATIENT WILL BE TRANSFER [place] [facility] [place] TRANSPORT ALREADY ARRANGE BY 5PM Addendum: 03/09/20 at 6865 by Ivette Barnes RN WRONG ENTRY NOTES
--- NOTE | 2020-03-09 15:29 | NUR ---
PENDING SALE TO [facility] CONTACTED AND SPOKE WITH NURSE ALAINA TESFAYE, LATEST VITAL SIGNS RELAYED, APPARENTLY WITH RIGHT UPPER ARM PICC LINE DOUBLE LUMEN FOR ANTIBIOTIC. DISCHARGE PACKET INSTRUCTION PREPARED. Addendum: 03/09/20 at 1756 by Ivette Barnes RN WRONG ENTRY NOTES
--- NOTE | 2020-03-09 15:40 | NUR ---
DAUGHTER SAHIL CONTACTED AND INFORMED PATIENT WILL BE TRANSFER TO [facility]. Addendum: 03/09/20 at 6626 by Ivette Barnes RN WRONG ENTRY NOTES
[2020-03-09 16:00] VITALS: BP 145/87
--- NOTE | 2020-03-09 18:10 | NUR ---
FULL LIQUID DIET SERVED,NO COMPLAINED OF PAIN VERBALIZED.
--- NOTE | 2020-03-09 19:09 | NUR ---
MAGNESIUM LEVEL-1.6, DR FAGAN INFORMED THRU TEXT MESSAGE, REPLIED AND ORDER CARRIED OUT.
--- NOTE | 2020-03-09 19:25 | NUR ---
ENDORSED TO APPRAISER AUDITOR IN STABLE CONDITION FOR CONTINUITY OF CARE.
--- NOTE | 2020-03-09 19:25 | NUR ---
RECD. RESTING IN BED, AWAKE, A/OX4. RESPIRATION EVEN AND UNLABORED. IV OF D51/2 NS AT 100 ML/HR INFUSING, LEFT HAND G24. SURGICAL INCISION IN THE ABDOMEN COVERED WITH DRESSING DRY AND INTACT WITH 1 KG DRAINING MINIMAL AMOUNT OF SANGUINOUS FLUID. ON BILATERAL LEG SEQUENTIALS. USES THE URINAL. ENCOURAGED TO AMBULATE. PLAN OF CARE FOR THE SHIFT DISCUSSED. VERBALIZED UNDERSTANDING. DENIES PAIN 0/10.
[2020-03-09] MEDS ORDERED: MAGNESIUM OXIDE 400 MG TAB PO SCH (21:00)
--- NOTE | 2020-03-09 21:57 | NUR ---
MAGNESIUM LEVEL TODAY 1.6, MEDICATED WITH MAG OX 800 MG. PO.
[2020-03-09] MEDS: HYDROcodone/APAP 5/325 MG 1 TAB TAB PO PRN (23:01)
[2020-03-10] VITALS: BP 155/87
--- NOTE | 2020-03-10 | NUR ---
SLEEPING COMFORTABLY IN BED.
[2020-03-10] MEDS: DEXT 5% / NACL 0.45% 1,000 ML IV SCH (03:08)
--- NOTE | 2020-03-10 03:10 | NUR ---
LYING ON HIS RIGHT SIDE, COMFORTABLY ASLEEP.
[2020-03-10 05:38] LABS: BASOPHILS # (AUTO) 0.1 K/uL (0.00-0.22); BASOPHILS % (AUTO) 0.9 % (0.0-2.0); EOSINOPHILS # (AUTO) 1.6 K/uL (0-0.4); EOSINOPHILS % (AUTO) 14.5 % (0.0-4.0); HEMATOCRIT 38.2 % (36-52); HEMOGLOBIN 12.7 g/dL (12.0-18.0); LYMPHOCYTES # (AUTO) 2.3 K/uL (2.0-11.5); LYMPHOCYTES % (AUTO) 21.2 % (20.5-51.1); MEAN CORPUSCULAR HEMOGLOBIN 28 pg (27-31); MEAN CORPUSCULAR HGB CONC 33 g/dL (33-37); MEAN CORPUSCULAR VOLUME 85.1 fL (80-94); MONOCYTES # (AUTO) 1.2 K/uL (0.8-1.0); MONOCYTES % (AUTO) 10.5 % (1.7-9.3); NEUTROPHILS # (AUTO) 5.8 K/uL (1.8-7.7); NEUTROPHILS % (AUTO) 52.9 % (42.2-75.2); PLATELET COUNT (AUTO) 363 K/uL (140-450); RED BLOOD CELL COUNT(AUTO) 4.49 MIL/uL (4.20-6.10); RED CELL DISTRIBUTION WIDTH 13.8 % (11.6-13.7); WHITE BLOOD COUNT (AUTO) 11.1 K/uL (4.8-10.8)
[2020-03-10] MEDS: HYDROcodone/APAP 5/325 MG 1 TAB TAB PO PRN (06:22)
[2020-03-10 06:25] LABS: ANION GAP 11.7 (8-16); CARBON DIOXIDE 27.1 mmol/L (21-32); CREATININE 1.1 mg/dL (0.6-1.3); POTASSIUM 3.8 mmol/L (3.5-5.1)
--- NOTE | 2020-03-10 07:00 | NUR ---
CONDITION REMAIN STABLE. WILL ENDORSE TO AM SHIFT NURSE FOR CONTINUITY OF CARE.
--- NOTE | 2020-03-10 07:15 | NUR ---
RECEIVED REPORT FROM NIGHT NURSE. PT IS AOX4, VERBAL, ON ROOM AIR, NO C/O PAIN, NO SOB, RESPIRATIONS ARE EVEN AND UNLABORED AFEBRILE. S/P LAPAROTOMY REPAIR OF PERFORATED GASTRIC ULCER. KG DRAIN INTACT WITH SANGUINOUS FLUID. ABD SURGICAL SITE DRESSING IS CLEAN AND INTACT. WITH IV SITE IN RH 24G RUNNING D5 1/2NS AT 100CC/HR. SAFETY PRECAUTIONS IN PLACE. CALL LIGHT WITHIN REACH. WILL CONTINUE TO MONITOR
[2020-03-10] MEDS: FLUCONAZOLE 200 MG/NS PREMIX 100 ML IV SCH (09:00)
[2020-03-10] MEDS ORDERED: lisinopriL 10 MG TAB PO SCH (09:15)
--- NOTE | 2020-03-10 09:20 | NUR ---
DUE MORNING MEDS GIVEN. TOLERATED PO MEDS WELL
[2020-03-10] MEDS: PANTOPRAZOLE 40 MG INJ VIAL IVP SCH (09:50)
[2020-03-10] MEDS: ENOXAPARIN 40 MG/0.4 ML SYR SUBQ SCH (09:51)
[2020-03-10] MEDS ORDERED: LISI10TA11 PO (10:34)
[2020-03-10] MEDS ORDERED: CEPH250C16 PO (10:34)
[2020-03-10] MEDS ORDERED: PANT40EC PO (10:34)
--- NOTE | 2020-03-10 11:45 | NUR ---
SEEN BY DR. SMITH. DR. SMITH REMOVED KG DRAIN AND CHANGED ABD DRESSING
--- NOTE | 2020-03-10 12:00 | NUR ---
DISCHARGE ORDER NOTED. DISCHARGE INSTRUCTIONS AND PRESCRIPTION GIVEN. MD FOLLOW-UP INSTRUCTED. PT VERBALIZED UNDERSTANDING. IV LINE REMOVED WITH LUMEN INTACT. OFFERED PT SHOES TO WEAR BUT PT REFUSED. PT ONLY WEARING SOCKS. PT ALSO REFUSED MEAL TO TAKE WITH HIM
--- NOTE | 2020-03-10 12:00 | NUR ---
PT REFUSED TO HAVE DISCHARGE PHOTOGRAPH OF WOUNDS TAKEN
--- NOTE | 2020-03-10 12:50 | NUR ---
ASSISTED PT TO [facility]. STABLE UPON DISCHARGE
== END 2020-03-10 12:50 | disposition home or self-care (01) | DRG 710 ==
LOC: MED 04:25 → MMU 06:10 → MTU 03-08 10:40
PROVIDERS: ADMIT Family Medicine; ATTEND Family Medicine
PROC: 0DB60ZX Excision of Stomach, Open Approach, Diagnostic (ICD-10-PCS; 2020-03-04)
PROC: 0D9600Z Drainage of Stomach with Drainage Device, Open Approach (ICD-10-PCS; 2020-03-04)
PROC: 0DU607Z Supplement Stomach with Autologous Tissue Substitute, Open Approach (ICD-10-PCS; principal; 2020-03-04 11:00)
DX: A41.9 Sepsis, unspecified organism (principal); G92 Toxic encephalopathy; E87.6 Hypokalemia; E44.1 Mild protein-calorie malnutrition; Z68.23 Body mass index [BMI] 23.0-23.9, adult; K85.90 Acute pancreatitis without necrosis or infection, unspecified; E87.1 Hypo-osmolality and hyponatremia; E83.39 Other disorders of phosphorus metabolism; N17.0 Acute kidney failure with tubular necrosis; E86.0 Dehydration; T43.621A Poisoning by amphetamines, accidental (unintentional), initial encounter; I10 Essential (primary) hypertension; K65.9 Peritonitis, unspecified; R73.9 Hyperglycemia, unspecified; K25.5 Chronic or unspecified gastric ulcer with perforation; Z59.0 Homelessness; Y92.89 Other specified places as the place of occurrence of the external cause
CPT/HCPCS: 36415; 71045; 80048; 80053; 80305; 81001; 82150; 83036; 83605; 83690; 83735; 83880; 84100; 84439; 84443; 84484; 85025; 85610; 85730; 87040; 87081; 87086; 88305; 88313; 88342; 93005; 96361; 96365; 96368; 96375; 99291; C9113; G0482; J0696; J1100; J1170; J1450; J1650; J1885; J2001; J2250; J2270; J2405; J2543; J2704; J3010; J3480; J3490; J7060; Q0092